=== PATIENT | male | born 1965 ===

== ENCOUNTER 2019-08-10 17:22 | Inpatient (IN) | payer MEDICARE, OTHER ==
[~2019-08-10] VITALS: Wt 120.2 kg
[2019-08-10] MEDS ORDERED: COLACE100 MG PO (18:42)
[2019-08-10] MEDS ORDERED: ELIQUIS5 M1 PO (18:43)
[2019-08-10] MEDS ORDERED: ARNUITY ELLIPT50 MCG INH (18:44)
[2019-08-10] MEDS ORDERED: LASIX20 MG PO (18:45)
[2019-08-10] MEDS ORDERED: LISINOPRIL5 MG PO (18:45)
[2019-08-10] MEDS ORDERED: SENNA8.6 MG PO (18:46)
[2019-08-10] MEDS ORDERED: MIRALAX17 GM PO (18:46)
[2019-08-10] MEDS ORDERED: METOPROLOL SUCC50 M2 PO (18:46)
[2019-08-10] MEDS ORDERED: FLOMAX0.4 MG PO (18:48)
[2019-08-10] MEDS ORDERED: LEVEMIR FL100 UNIT/1 SQ (18:49)
[2019-08-10] MEDS ORDERED: CYMBALTA30 MG PO (18:50)
[2019-08-10] MEDS ORDERED: DEPAKOTE500 MG PO (18:51)
[2019-08-10] MEDS ORDERED: DEPAKOTE250 MG PO (18:51)
[2019-08-10] MEDS ORDERED: MAPAP325 MG PO (18:53)
[2019-08-10] MEDS ORDERED: Ipratropium Brom3 ML INH ×2 (18:55→18:56)
[2019-08-10] MEDS ORDERED: MELATONIN5 M1 PO (18:56)
[2019-08-10] MEDS ORDERED: HUMALOG100 UNIT/1 SQ (18:57)
[2019-08-10] MEDS ORDERED: HUMALOG100 UNIT/2 SC (19:00)
--- NOTE | 2019-08-11 05:45 | NUR ---
FARHAT CARRERA a 53 year old M admitted via stretcher from [facility] as a emergency 72 hr. hold admission. PT RESIDES AT [facility] Arrived on unit at 0537. ALLERGIES: CHANTIX, LYRICA, NEURONTIN. Vital signs are: [id number] 146/86. PT REFUSED TO SIGN ALL ADMISSION FORMS AT THIS TIME. Authorization For The Release of Medical Information, Clothing List, Consent to Voluntary Admission and Hospitalization, Consent and Release Forms/Receipt of Rights, Acknowledgement of Advance Directive Information, Behavioral Health Consent Form, and Informed Consent of Medications. Admitted under the services of Dr. TAMMI MANCERA,[facility]. A search was conducted and hazardous articles were removed. Client was oriented to the unit. REFUSED SKIN ASSESSMENT AT THIS TIME. JOSEPH SIMMONS
--- NOTE | 2019-08-11 06:16 | NUR ---
DR ALLEN NOTIFIED OF MEDICAL CONSULT & MED REQ IS READY FOR REVIEW. CONSULT TO BE PLACED UNDER DR FOFANA.
--- NOTE | 2019-08-11 06:29 | NUR ---
AM BEDSIDE GLUCOSE WAS [id number]
[2019-08-11 06:33] VITALS: BP 146/86
[2019-08-11 07:44] VITALS: BP 146/86
--- NOTE | 2019-08-11 07:48 | NUR ---
NOTIFIED JULIAN HOANG OF PT ADMISSION. PER JULIAN SHE WILL BE IN TODAY.
[2019-08-11] MEDS ORDERED: CYMBALTA60 MG PO (07:56)
--- NOTE | 2019-08-11 10:00 | NUR ---
PATIENT STATING THAT HIS SISTER IS HIS POA, CALLED [facility] AT [phone] FOR PAPERWORK ON POA TO BE FAXED HERE.
--- NOTE | 2019-08-11 10:00 | NUR ---
PATIENT AGREED ALLOWED THIS NURSE AND MENTAL HEALTH WORKER TO ASSESS SKIN AND TAKE PICTURES OF ANY AREAS OF CONCERN. AREAS ASSESSED AND PICTURES TAKEN AT THIS TIME, SEE DOCUMENTATION FOR FURTHER DETAIL.
[2019-08-11 11:03] LABS: BASO % 0.5 % (0.0-1.0); EOS # 0.1 10*3/uL (0.0-0.4); EOS % 0.8 % (1.0-4.0); LYMPH # 1.8 10*3/uL (1.3-4.4); LYMPH % 23.1 % (27.0-41.0); MEAN CELL VOLUME 88.4 fl (80.0-94.0); MEAN CORPUSCULAR HGB 29.1 pg (27.0-31.0); MEAN CORPUSCULAR HGB CONC 32.9 g/dl (33.0-37.0); MEAN PLATELET VOLUME 9.7 fl (9.6-12.3); MONO # 0.8 10*3/uL (0.1-1.0); MONO % 10.6 % (3.0-9.0); NEUT % 64.1 % (47.0-73.0); PLATELET COUNT AUTOMATED 160 10*3/uL (130-400); RED BLOOD COUNT 5.09 10*6/uL (4.50-5.90); RED CELL DISTRI WIDTH 14.8 % (0-14.5); WHITE BLOOD COUNT 7.8 10*3/uL (4.8-10.8)
[2019-08-11 11:19] LABS: ALBUMIN 2.8 gm/dl (3.1-4.5); ALKALINE PHOSPHATASE 85 U/L (45-117); BUN 20 mg/dl (7-24); CHLORIDE 99 mmol/L (98-107); CREATININE 0.73 mg/dL (0.70-1.30); POTASSIUM 4.1 mmol/L (3.5-5.1); SGOT/AST 15 IU/L (3-35); SGPT/ALT 28 U/L (12-78); SODIUM 133 mmol/L (136-145); TOTAL PROTEIN 7.3 gm/dL (6.4-8.2)
[2019-08-11 12:37] LABS: VITAMIN D, 25-HYDROXY 21.8 ng/mL (30-100)
--- NOTE | 2019-08-11 12:53 | NUR ---
PSYCHOSOCIAL HX COMPLETED THIS DATE.
--- NOTE | 2019-08-11 13:08 | NUR ---
SPOKE WITH DR MYERS RE: PT NEEDING WOUND ORDERS FOR MULTIPLE AREAS. PER PIERCE MYERS GO AHEAD AND ORDER SKIN TEAR GUIDELINES. NO FURTHER ORDERS AT THIS TIME.
--- NOTE | 2019-08-11 14:27 | NUR ---
Shift chart check completed.
--- NOTE | 2019-08-11 14:59 | NUR ---
POA PAPER WORK FAXED OVER BY FACILITY, PUT IN PATIENTS CHART.
[2019-08-11 15:55] LABS: COLOR YELLOW (YELLOW)
[2019-08-11 15:56] LABS: BILIRUBIN NEGATIVE (NEGATIVE); BLOOD 3+ (NEGATIVE); CLARITY SL CLOUDY (CLEAR); GLUCOSE TRACE (NEGATIVE); KETONE NEGATIVE (NEGATIVE); LEUKO ESTERASE NEGATIVE (NEGATIVE); NITRITE NEGATIVE (NEGATIVE); SPECIFIC GRAVITY 1.015 (1.005-1.030); UROBILINOGEN 0.2 E.U./dl (0.2-1.0)
[2019-08-11 15:59] LABS: RBC 41-50 rbc/hpf (0-2); WBC 0-2 wbc/hpf (0-5)
[2019-08-11 16:00] LABS: BACTERIA 1+
--- NOTE | 2019-08-11 16:15 | NUR ---
P- ISOLATIVE; PREOCCUPIED WITH NURSING FACILITY I- ASSESS MOOD, ORIENTATION, SI/HI, HALLUCINATIONS, DELUSIONS OR PAIN. PROVIDE MEDS ON TIME WITH EDUCATION ON EACH. 1:1 THERAPEUTIC INTERACTION WITH EMOTIONAL SUPPORT AND VENTILATION OF FEELINGS. THERAPEUTIC LISTENING AND REASSURANCE PROVIDED. PROVIDE MEDICATIONS ON TIME WITH EDUCATION ON EACH. TWO ASSIST AND RAYMON FOR TRANSFERS; ENCOURAGE TO SHIFT WEIGHT AND ASSIST EVERY TWO HOURS. PRESSURE REDUCTION DEVICES IN PLACE. R- ALERT AND ORIENTED X3. MOOD IRRITABLE/DEPRESSED. DENIES SI/HI, HALLUCINATIONS, OR PAIN. NO S/S OF INTERACTING WITH INTERNAL STIMULI. MED COMPLIANT. EATING AND DRINKING ADEQUATELY. PATIENT PREOCCUPIED ABOUT NURSING FACILITY AND STATES THAT THEY TREAT HIM UNFAIRLY AND HE IS UPSET WITH HIS ROOMMATE. REASSURANCE, 1:1, AND LISTENING EFFECTIVE. PATIENT ISOLATIVE TO SELF, INTERACTIVE WITH STAFF. INCONTINENT OF BOWEL AND BLADDER/CONTINENT OF BLADDER AT TIMES. MAKES NEEDS KNOWN. P- ASSESS MOOD, ORIENTATION, SI/HI, HALLUCINATIONS, DELUSIONS, OR PAIN EVERY SHIFT. PROVIDE MEDS ON TIME WITH EDUCATION ON EACH. TWO ASSIST/RAYMON/ENCOURAGE AND ASSIST IN SHIFTING WEIGHT EVERY TWO HOURS. PRESSURE REDUCTION DEVICES INTACT. 1:1 THERAPEUTIC INTERACTION, REASSURANCE, LISTENING PROVIDED WHEN NECESSARY. FALLING STAR PROGRAM IN PLACE. Q15 MINUTE CHECKS MAINTAINED FOR SAFETY.
[2019-08-11 18:01] VITALS: BP 146/86
--- NOTE | 2019-08-11 18:32 | NUR ---
PATIENT STATES THAT PRN PO ATIVAN WAS EFFECTIVE AND HIS ANXIETY HAS DECREASED. PATIENT IS CURRENTLY LAYING IN HIS ROOM, EYES OPEN, RESPS EVEN AND UNLABORED, AND NO S/S OF DISTRESS NOTED. PATIENT HAS NO OTHER VOICED COMPLAINTS AT THIS TIME. ENCOURAGING TO CONTINUE TO UTILIZE COPING SKILLS.
[2019-08-11 20:00] VITALS: BP 100/60
--- NOTE | 2019-08-11 21:53 | NUR ---
P-DEPRESSED MOOD, IRRITABLE I-REDIRECTION WITH 1:1 THERAPEUTIC INTERVENTIONS. EDUCATE AND ENCOURAGE MEDICATION COMPLIANCE R-PATIENT COMPLIANT WITH HS MEDICATIONS. PATIENT PROVIDED NOURISHMENT AND FLUIDS AT HS. PATIENT WITH DEPRESSED MOOD. PATIENT STATING "I DID NOT LIKE IT AT THE FACILITY. THEY MADE FUN OF ME THERE". THERAPEUTIC COMMUNICATION PROVIDED AND EFFECTIVE AT THIS TIME. PATIENT IRRITABLE AT START OF SHIFT AND LESS IRRITABLE ONCE IN BED. PATIENT PROVIDED A URINAL AT BEDSIDE AND TOLERATING HEEL PROTECTORS. PATIENT TRANSFERRED IN BED VIA RAYMON WITH ASSIST X 2. P-CONTINUE TO ENCOURAGE MEDICATION COMPLIANCE, ENCOURAGE GROUP THERAPY WHILE AWAKE
--- NOTE | 2019-08-12 00:10 | NUR ---
Pulmicort treatment missed due to workload. Will resume in AN to keep patient on schedule.
--- NOTE | 2019-08-12 05:54 | NUR ---
PATIENT SLEPT 7 HOURS OF INTERRUPTED SLEEP THROUGHOUT SHIFT. Q 15 MINUTE CHECKS MAINTAINED. 24 HR chart check completed.
--- NOTE | 2019-08-12 07:40 | NUR ---
and team on unit to see pt at this time, update given. Latesha [facility]- saw pt this am, update given.
[2019-08-12 08:00] VITALS: BP 99/66
--- NOTE | 2019-08-12 08:10 | NUR ---
Patient eating in quiet room per pt request. Respirations easy and regular. Vital signs stable. No overt distress. DEJUAN KELLER
--- NOTE | 2019-08-12 08:52 | NUR ---
Recieved call from pt's sister Laura Welch, pt gave this RN verbal permission to speak with and update sister. Pt states "tell her anything she wants to know. I love that girl and she cares about me". Update given. Sister then requested to speak with pt, pt is talking with sister on phone at this time.
--- NOTE | 2019-08-12 12:35 | NUR ---
As this RN and second RN were providing linda-care to pt, pt grimaced in pain as care was provided. Upon assessment two areas of impaired skin noted to penis, surrounding skin is red. Area most proximal measures 0.3cm x 0.2cm x <0.1cm, red in color with yellow center. Distal area is larger and measures 0.5cm x 0.8cm x <0.1cm, this area is red in color with yellow center. No drainage or foul odor noted from these areas. Pt states "at the [facility] they tell me it's a yeast infection and sometimes they put cream on it a few times a week". Wound photographs taken after permission granted by pt for photographs to be taken. Dr. Jade notified and assessed pt. Nursing rose grading supervisor notified. Pt is A+Ox4 and is aware of area.
--- NOTE | 2019-08-12 12:40 | NUR ---
on unit, assessed pt, spoke with pt about skin lesions to penis. states he will enter orders.
--- NOTE | 2019-08-12 13:30 | NUR ---
Pt requested to lay down, pt assisted to bed at this time via neela lift by 2 RNs. Offered pt bed bath, pt declined, states "not right now, maybe tomorrow".
--- NOTE | 2019-08-12 16:25 | NUR ---
Pt rang call thomas, requested to get up out of bed. Assisted out of bed via neela by this RN and 2nd RN. Pt calm, pleasant and cooperative. Pt taken to quiet room per his request to look out the window. A few moments later pt comes to nurse's station requesting medication for "feeling really nervous". 1:1 with pt provided, pt states "I get this sometimes, I don't know why. I just feel nervous inside and I think I need that PRN medication to help me calm down". Encouraged pt to attempt to work through anxiety with nonpharmalogical measures first. Pt states he likes to do word search puzzles. Word search book provided. Pt calm and joking with staff when blood sugar checked, pt states "I'm just too sweet ya know". No outward signs of anxiety noted at this time. Pt currently working on word search. Will cont to monitor.
--- NOTE | 2019-08-12 17:21 | NUR ---
P- Depressed mood, isolates from peers, frequently voices displeasure regarding events that took place at [facility]term prior to hospital admission. I- Orientation, mood and behaviors assessed. Assessed pt for SI/HI, intent or plan. Assessed pt for s/s hallucinations, paranoia and/or delusions. Medications administered as per physician's orders. Assistance with ADL care provided as needed. Encouraged pt to participate in carrasco milieu. R- Pt is alert and oriented x4. Both ST and LT memory appear to be intact. Resps easy and even on room air. Pt reports depressed mood with periods of increased anxiety. Pt admits he has trouble controlling his anger at times. Affect is broad range. Speech is WNL and coherent, able to make needs known without difficulty. Pt denies SI/HI, intent or plan. Pt states "No, I've never wanted to kill myself. I might have wanted to kick someone's ass back in the day but I don't want to go to skilled nursing". Pt denies hallucinations, no response to internal stimuli noted. No paranoia or delusions noted. Med compliant without difficulty. Pt isolates from peers but talks easily and extensively with staff. Pt speaks frequently about issues he is having at the longterm prior to admission but pt states he is willing to go back there and give it one more try because his sister asked him to. This RN spent extensive time 1:1 with pt, allowed pt ample time to vent feelings and frustrations, provided pt with emotional support and encouraged pt to utilize coping skills to help manage anger. Pt enjoys reminiscing about his dogs. Pt declines to come out into dining room or be around peers. Pt prefers to sit in quiet room facing the window so he can look outside. Pt states "I'd rather sit here and look over at [place]". Pt compliant with hands on care, no aggressive or angry outbursts this shift. No distress noted. P- Plan to continue current treatment, continue to monitor mood and behaviors, provide appropriate reorientation, redirection and 1:1 as needed. Continue to encourage med compliance as well as group attendance and participation.
--- NOTE | 2019-08-12 17:34 | NUR ---
Call placed to respiratory requesting breathing tx per pt request. No distress noted.
[2019-08-12 20:00] VITALS: BP 102/58
--- NOTE | 2019-08-12 21:25 | NUR ---
P-DEPRESSED MOOD, IRRITABLE I-REDIRECTION WITH 1:1 THERAPEUTIC INTERVENTIONS. EDUCATE AND ENCOURAGE MEDICATION COMPLIANCE R-PATIENT COMPLIANT WITH HS MEDICATIONS. PATIENT PROVIDED NOURISHMENT AND FLUIDS AT HS. PATIENT WITH DEPRESSED MOOD. PATIENT STATING "SOMETIMES I FEEL LIKE I CAN CRAWL OUT OF MY OWN SKIN". THIS NURSE OBSERVED PATIENT PICKING AT SKIN. THIS NURSE PROVIDED 1:1 THERAPEUTIC COMMUNICATION AND PATIENT STATING DURING CARE "CAN I JUST STAY HERE FOREVER? DO I HAVE TO ACTING CRAZY SO I CAN STAY"? THIS NURSE PROVIDED MORE 1:1 THERAPEUTIC COMMUNICATION AND WITH EFFECTIVE RESULTS. PATIENT PROVIDED A URINAL AT BEDSIDE AND TOLERATING HEEL PROTECTOR. PATIENT TRANSFERRED IN BED VIA RAYMON WITH ASSIST X 2. P-CONTINUE TO ENCOURAGE MEDICATION COMPLIANCE, ENCOURAGE GROUP THERAPY WHILE AWAKE
--- NOTE | 2019-08-12 21:36 | NUR ---
DR VAZQUEZ NOTIFIED ABOUT PATIENT COMPLAINT OF SORE THROAT. NEW ORDER FOR CEPACOL TID PRN.
--- NOTE | 2019-08-12 22:38 | NUR ---
PATIENT RECEIVED CEPACOL WITH SOMEWHAT EFFECTIVE RESULTS AT THIS TIME
--- NOTE | 2019-08-13 05:19 | NUR ---
FARHAT CARRERA [id number] Please refer to the physician's history and physical for past medical history, comorbid conditions, and allergies. Diagnosis: INTERMITTENT EXPLOSIVE DISORDER Warren Score: 16,AT RISK WOUND DESCRIPTIONS: Wound Number: 1 Location of the wound: right top of foot Type of wound: scab Thickness: Partial Size: 0.2cm x 0.2cm x <0.1cm Tunneling: none Undermining: none Sinus Tract: none Presence of Exudate: none Amount: None Color: Brown, red Odor: None Periwound Skin Appearance: Normal Wound edges: approximated Pain (associated with wound): none at time of assessment How does patient state this happened? pt states he picks at [facility] Wound Number: 2 Location of the wound: right forearm distal Type of wound: scab Thickness: Partial Size: 0.5cm x 0.4cm x <0.1cm Tunneling: none Undermining: none Sinus Tract: none Presence of Exudate: none Amount: None Color: Brown, red Odor: None Periwound Skin Appearance: Normal Wound edges: approximated Pain (associated with wound): none at time of assessment How does patient state this happened? pt states he picks at [facility] Wound Number: 3 Location of the wound: right forearm proximal Type of wound: scab Thickness: Partial Size: 0.5cm x 0.5cm x <0.1cm Tunneling: none Undermining: none Sinus Tract: none Presence of Exudate: none Amount: None Color: Brown, red Odor: None Periwound Skin Appearance: Normal Wound edges: approximated Pain (associated with wound): none at time of assessment How does patient state this happened? pt states he picks at [facility] Wound Number: 4 Location of the wound: right forearm Type of wound: scab Thickness: Partial Size: 0.3cm x 0.2cm x <0.1cm Tunneling: none Undermining: none Sinus Tract: none Presence of Exudate: none Amount: None Color: Brown, red Odor: None Periwound Skin Appearance: Normal Wound edges: approximated Pain (associated with wound): none at time of assessment How does patient state this happened? pt states he picks at [facility] Wound Number: 5 Location of the wound: right forearm medial Type of wound: scab Thickness: Partial Size: 1.6cm x 0.4cm x <0.1cm Tunneling: none Undermining: none Sinus Tract: none Presence of Exudate: none Amount: None Color: Brown, red Odor: None Periwound Skin Appearance: Normal Wound edges: approximated Pain (associated with wound): none at time of assessment How does patient state this happened? pt states he picks at [facility] Wound Number: 6 Location of the wound: left upper arm Type of wound: scab Thickness: Partial Size: 0.7cm x 0.6cm x <0.1cm Tunneling: none Undermining: none Sinus Tract: none Presence of Exudate: none Amount: None Color: Brown, red Odor: None Periwound Skin Appearance: Normal Wound edges: approximated Pain (associated with wound): none at time of assessment How does patient state this happened? pt states he picks at [facility] Wound Number: 7 Location of the wound: proximal penis Thickness: Partial Size: 0.3cm x 0.5cm x 0.1cm Tunneling: none Undermining: none Sinus Tract: none Presence of Exudate: Serosanguineous Amount: Light Color: Red Odor: None Periwound Skin Appearance: Normal Wound edges: approximated Pain (associated with wound): none at time of assessment How does patient state this happened? pt states he was getting [facility] for a [facility] at the [facility] Wound Number: 8 Location of the wound: distal penis Thickness: Partial Size: 0.5cm x 0.6cm x 0.1cm Tunneling: none Undermining: none Sinus Tract: none Presence of Exudate: serosanguinous Amount: Light Color: Red Odor: None Periwound Skin Appearance: Normal Wound edges: approximated Pain (associated with wound): none at time of assessment How does patient state this happened? pt states he was getting [facility] for a [facility] Patient has intact scabbed areas noted to left ring finger as well and top of head. Patient states he picks at himself. Patient states he has neuropathy and that is what caused him to lose his big toe and below his knee of left lower extremity. Surface the patient is resting on: Proform SKIN PREVENTION RECOMMENDATION: 1. Pressure redistribution support surface as appropriate 2. Elevate heels 3. Remove boots/TEDS every shift and reapply 4. Head of bed 30 degrees as tolerated 5. Assess nutrition and hydration 6. Manage moisture 7. Avoid the use of containment devices while in bed 8. Use absorptive products on surfaces limit layers of linens on bed 9. Turn and reposition every 1-2 hours in bed and every 1 hour in chair as tolerated 10. Weight shifts every 15 minutes while up in chair 11. Offloading with pillows or device to keep heels elevated off bed 12. Monitor skin at least every shift 13. Inspect under medical devices twice a day WOUND TREATMENT RECOMMENDATIONS: Cleanse proximal penis and distal penis with soap water and apply nystatin cream bid and leave open to air. D/C skin tear guidelines Cleanse right top of foot, right forearm distal, right forearm proximal, right forearm lateral, right forearm medial,left upper arm, top of head, left ring finger with soap and water and apply aquaphor ointment BID. Heel raiser pro boot to right foot while in bed.
--- NOTE | 2019-08-13 05:30 | NUR ---
PATIENT SLEPT APPROXIMATELY 6 HOURS THROUGHOUT SHIFT. Q 15 MINUTE CHECKS MAINTAINED. 24 HR chart check completed.
[2019-08-13 07:32] VITALS: BP 121/79
--- NOTE | 2019-08-13 08:08 | NUR ---
PHYSICAL THERAPY Screen received pt is from [facility] admitted with intermittent explosive disorder. Please consult PT if pt has a decline in functional activity from baseline. Maliha Viramontes PT
--- NOTE | 2019-08-13 08:20 | NUR ---
Nursing screen received and chart reviewed. Patient admitted for [facility]. If patient has a decline in ADLs, please send OT orders. Thank you. Shruthi Lopes, OTR/L
--- NOTE | 2019-08-13 08:38 | NUR ---
AWILDA CALLED IN FOR UPDATE ON PT CONDITION, UPDATE PROVIDED.
--- NOTE | 2019-08-13 08:38 | NUR ---
Patient in quiet area per pt request. Respirations easy and regular. Vital signs stable. No overt distress. DEJUAN KELLER
--- NOTE | 2019-08-13 09:41 | NUR ---
Dr. Mercedes notified of wound care recommendations.
--- NOTE | 2019-08-13 12:15 | NUR ---
Spoke to Nereida at [facility]. Authorization form and clinical faxed to [phone]. Waiting for response.
--- NOTE | 2019-08-13 12:48 | NUR ---
DR FOFANA ON UNIT TO ASSESS PT, UPDATE PROVIDED.
--- NOTE | 2019-08-13 13:31 | NUR ---
PT REQUESTING A BREATHING TX AT THIS TIME, SPOKE WITH FRANKI CONTEH AND ADVISED OF PT REQUEST.
--- NOTE | 2019-08-13 15:40 | NUR ---
PM GROUP PT DID NOT ATTEND AFTERNOON GROUP THERAPY HE PREFERS TO BE ALONE IN THE QUIET ROOM. PT WORKS ON WORDSEARCH OR READS AND IS CONTENT TO DO SO.
--- NOTE | 2019-08-13 17:14 | NUR ---
P: PT ISOLATIVE TO GROUP ROOM, WILL INTERACT WITH STAFF BUT REFUSES TO INTERACT WITH PEERS. PT ANXIOUS AT TIMES AND OBSERVED TO BE PICKING AT SKIN. PT MOOD IS DEPRESSED. I: PROVIDE EMOTIONAL SUPPORT AND 1:1 FOR PT TO VOICE FEELINGS, ENCOURAGE GROUP PARTICIPATION AND SOCIALIZATION, ENCOURAGE PT TO PRACTICE DEEP BREATHING EXERCISES, OFFER DIVERSIONAL ACTIVITIES, ENCOURAGE PT TO STOP PICKING AT SKIN R: PT ALERT TO PERSON, PLACE, TIME AND SITUATION. PT MED COMPLIANT WITHOUT DIFFICULTY, MED EDUCATION PROVIDED. PT PLEASANT AND INTERACTIVE WITH STAFF AND PEERS. PT DENIES ANY SUICIDAL THOUGHTS. PT CONTINENT OF BOWEL AND BLADDER. PT REQUIRES A RAYMON LIFT FOR TRANSFERS INTO A GERICHAIR. PT WILL STOP PICKING AT SKIN AT TIMES WHEN DIRECTEDM BY STAFF. P: PROVIDE EMOTIONAL SUPPORT AND 1:1 FOR PT TO VOICE FEELINGS, ENCOURAGE PT TO STOP PICKING AT SKIN, APPLY AQUAPHOR ORDERED, ENCOURAGE GROUP PARTICIPATION AND SOCIALIZATION, CONTINUE TO PROVIDE DIVERSIONAL ACTIVITES, AND ENCOURAGE DEEP BREATHING EXERCISES
[2019-08-13 19:10] VITALS: BP 102/65
--- NOTE | 2019-08-13 23:11 | NUR ---
P-ISOLATIVE I-REDIRECTION WITH 1:1 THERAPEUTIC INTERVENTIONS. EDUCATE AND ENCOURAGE MEDICATION COMPLIANCE R-PATIENT COMPLIANT WITH HS MEDICATIONS. PATIENT PROVIDED NOURISHMENT AND FLUIDS AT HS. PATIENT ISOLATIVE IN DINING AREA AND MINIMAL INTERACTIONS WITH PEERS. PATIENT IN QUIET ROOM THROUGHOUT SHIFT. PATIENT STATING "I TALKED TO MY SISTER AND TO JOSE LUIS TODAY AND I WAS TOLD I COULD STAY HERE ALOT LONGER THAN I THOUGHT. PATIENT LESS PREOCCUPIED WITH NEGATIVE STATEMENTS ABOUT HIS LONG-TERM. PATIENT PROVIDED A URINAL AT BEDSIDE AND TOLERATING HEEL PROTECTOR. PATIENT TRANSFERRED IN BED VIA RAYMON WITH ASSIST X 2. P-CONTINUE TO ENCOURAGE MEDICATION COMPLIANCE, ENCOURAGE GROUP THERAPY WHILE AWAKE
--- NOTE | 2019-08-14 05:47 | NUR ---
PATIENT SLEPT 8 HOURS OF INTERRUPTED SLEEP THROUGHOUT SHIFT. Q 15 MINUTE CHECKS MAINTAINED. 24 HR chart check completed.
[2019-08-14 07:43] VITALS: BP 132/77
--- NOTE | 2019-08-14 07:48 | NUR ---
Patient resting quietly with no c/o discomfort. Respirations easy and regular. Vital signs stable. No overt distress. JULIAN HERNANDEZ
--- NOTE | 2019-08-14 09:09 | NUR ---
DR FOFANA AND TEAM ON UNIT TO ASSESS PT, UPDATE PROVIDED. PT C/O FEELING CONSTIPATED. ADVISED DR THAT PT HAS NOT HAD A BM IN 4 DAYS AND RECEIVED MILK OG MAG LAST HS. NO FURTHER ORDERS AT THIS TIME.
--- NOTE | 2019-08-14 09:16 | NUR ---
DR ALFONSO UPDATED ON PT UA C& RESULTS. ADVISED THAT PT IS ASYMPTOMATIC. NO FURTHER ORDERS AT THIS TIME.
--- NOTE | 2019-08-14 09:22 | NUR ---
SPOKE WITH DR CADENA AT THE REQUEST OF MEDICAL DUE TO PT C/O NERVE PAIN. PER DR CADENA PT IS ON THE MAX DOSE OF CYMBALTA AT THIS TIME AND IT SHOULD HELP WITH PT PAIN. UPDATED DR VAZQUEZ, PER GO AHEAD AND GIVE PT SOME TYLENOL ALSO. NO FURTHER ORDERS AT THIS TIME.
--- NOTE | 2019-08-14 10:36 | NUR ---
Met with pt this AM individually. Pt was pleasant as he spoke about his love of [place]. Pt reminisced about staying at his grandparents home in [facility] during the summer months when he was young. 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 Pt spoke about his previous marriage and the difficulty he had with his ex-. Pt did not exhibit any inappropriate behaviors during interaction with this copy writer. No delusions or hallucinations were voiced by pt. Pt admitted to feeling depressed at times and having difficulty with living in the . Conversation was interrupted by pt's breakfast being delivered to him.
--- NOTE | 2019-08-14 11:49 | NUR ---
AM GROUP PT CHOSES TO STAY IN A QUIET ROOM AND ALAN WORDSEARCHS OR READS THE NEWSPAPER. PT IS PLEASANT AND POLITE. PT IS CONTENT AND EXHIBITS NO ADVERSE BEHAVIORS.
--- NOTE | 2019-08-14 13:02 | NUR ---
IP [address] [facility]. NRD 08/17. Ref # [id number]
--- NOTE | 2019-08-14 15:37 | NUR ---
PM GROUP PT DID NOT ATTEND AFTERNOON GROUP THERAPY. PT WAS IN BED RESTING.
--- NOTE | 2019-08-14 15:45 | NUR ---
Shift chart check completed.
--- NOTE | 2019-08-14 16:34 | NUR ---
PT REQUESTING A BREATHING TREATMENT, SPOKE WITH RT AND ADVISED OF PT REQUEST, NO FURTHER ORDERS AT THIS TIME.
--- NOTE | 2019-08-14 18:02 | NUR ---
P: DEPRESSED MOOD, REPORTED 5/10 OF DEPRESSION SCORE. I: ONE ON ONE FOR EMOTIONAL SUPPORT, INTERACTIVE WITH STAFF. R: EFFECTIVE. PATIENT IS ALERT TO PERSON, PLACE, TIME AND SITUATION. MOOD IS STABLE. IN GOOD HUMOR. DENIES ANY HALLUCINATIONS, DELUSIONS, HI/SI. MEDICATIONED WITH TYLENOL FOR PAIN MANAGEMENT. 2 PERSON ASSIST WITH ACTIVITIES OF DAILY LIVING, CONTINENT OF BOWEL AND BLADDER. SET UP FOR MEALS, INTAKES ARE GOOD WITH ADEQUATE FLUIDS. MEDICAITON COMPLAINT WITH EDUCATION PROVIDED. Q 15 MINUTE SAFETY CHECKS MAINTAINED. P: CONTINUE TO MONITOR MOOD AND AGGRESSION. PROVIDE ONE ON ONE AND REDIRECTION NEEDED.
--- NOTE | 2019-08-14 18:29 | NUR ---
SPOKE WITH DR OROZCO AND ADVISED THAT PT MAG CITRATE WAS EFFECTIVE, NO FURTHER ORDERS AT THIS TIME.
[2019-08-14 19:02] VITALS: BP 111/69
--- NOTE | 2019-08-14 19:45 | NUR ---
24 HR chart check completed.
--- NOTE | 2019-08-14 21:30 | NUR ---
PT RECEIVED BREATHING TREATMENT AT THIS TIME.
--- NOTE | 2019-08-14 23:06 | NUR ---
P-ISOLATIVE I-1:1 FOR EMOTIONAL SUPPORT, ADMINISTER MEDICATIONS, MONITOR SLEEP R-ALERT & ORIENTED X 4. PLEASANT & JOVIAL INTERACTIONS WITH STAFF. STABLE MOOD. STATED THAT HE IS FEELING BETTER & HE WOULD LIKE TO STAY HERE LONGER BECAUSE HE LIKES IT HERE & EVERYONE IS NICE. HAS REMAINED ISOLATIVE TO HIS ROOM & HAD 2 MORE LOOSE BMS ON BED PROCTOR. DENIES SUICIDAL FEELINGS. NO DELUSIONS VOICED. DENIES SENSORY DISTURBANCE & NONE IS EVIDENT. CONTINENT OF BLADDER & USES BEDSIDE URINAL. ATE SNACK. BEDSIDE GLUCOSE 276. COMPLIANT WITH DIETARY RESTRICTIONS & MEDICATIONS. NO AGITATION OR AGGRESSION. TALKS ABOUT HOW MUCH HE LOVES & APPRECIATES HIS SISTER. P-CONTINUE TO MONITOR & PROVIDE PHYSICAL ASSISTANCE & EMOTIONAL SUPPORT
--- NOTE | 2019-08-15 05:27 | NUR ---
PT HAS SLEPT INTERMITTENTLY THROUGHOUT THE SHIFT SLEEPING APPX 5 1/2- 6 HOURS. PRESENTLY RECEIVING BREATHING TREATMENT.
--- NOTE | 2019-08-15 06:45 | NUR ---
AM BEDSIDE GLUCOSE [id number]
--- NOTE | 2019-08-15 07:50 | NUR ---
DR. FOFANA ON UNIT TO ASSESS PATIENT.
[2019-08-15 08:00] VITALS: BP 125/81
--- NOTE | 2019-08-15 08:15 | NUR ---
Treatment Plan meeting was held with Dr. Boss, SANTY Murphy, RN, AT, HAND TAPPER-S and Steam Distribution Supervisor. Plan for discharge . Pt. will return to [facility].
--- NOTE | 2019-08-15 08:16 | NUR ---
Patient resting quietly with no c/o discomfort. Respirations easy and regular. Vital signs stable. No overt distress. JULIAN HERNANDEZ
--- NOTE | 2019-08-15 10:17 | NUR ---
Spoke with Mira in admissions at [place] and inquired about availabilty of a private room for patient. Mira stated that she is unsure if they are accepting admissions from other s at this time due to COVID 19. She requested that a referral be faxed and she will then speak to the content administrator. Faxed referral to her attn. Await return call.
--- NOTE | 2019-08-15 10:32 | NUR ---
PATIENT COMPLAINING OF SORE THROAT/COUGH. PRN LOZENGER GIVEN PO AT THIS TIME.
--- NOTE | 2019-08-15 11:20 | NUR ---
Per Mira Palafox, pt is denied admission there.
--- NOTE | 2019-08-15 11:33 | NUR ---
AM GROUP PT CHOOSES NOT TO ATTEND GROUP THERAPY. PT REMAINS IN A QUIET ROOM AND READS THE NEWSPAPER OR DOES WORDSEARCH PUZZLES.
--- NOTE | 2019-08-15 13:01 | NUR ---
Call placed to respiratory for breathing tx per pt request. No distress noted.
--- NOTE | 2019-08-15 13:54 | NUR ---
Spoke with Jolanta at [facility] concerning discharge plans for possible discharge . Clinical Updates faxed to Facility.
--- NOTE | 2019-08-15 14:27 | NUR ---
P- Isolative, preoccupied with talking about roommate and not going back to [facility] yet. Pt states "I want to stay as long as needed to make sure I'm well before I go back". I- Orientation, mood and behaviors assessed. Assessed pt for SI/HI, intent or plan. Assessed pt for s/s hallucinations, paranoia and/or delusions. Medications administered as per physician's orders. Assistance with ADL care provided as needed, neela lift for transfers. Encouraged pt to attend and participate in carrasco milieu groups and activities. R- Pt is A+Ox4. Memory appears to be intact. Resps easy and even on room air. Mood stable, euthymic, affect broad range. Speech is WNL and coherent, able to make needs known without difficulty. Pt denies SI/HI, intent or plan. Pt denies hallucinations, no response to internal stimuli noted. No paranoia or delusions noted. Med compliant without difficulty. Pt continues to be preoccupied with his dislike for his roommate at the [facility] and states "I want to stay here as long as needed to make sure I'm well before I go back". Pt states he is planning to go back to [facility], pt states "the lease administrator just loves me. She wants me back". No aggressive behaviors displayed this shift. Pt compliant with HOC, complete bed bath/shave completed this shift. Pt continues to isolate to quiet room, declines to attend groups. Will engage readily in conversation with staff but minimal peer interactions noted. P- Plan to continue current tx, continue to monitor mood and behaviors, provide appropriate reorientation, redirection and 1:1 as needed. Continue to encourage medication compliance as well as group attendance and participation.
--- NOTE | 2019-08-15 15:28 | NUR ---
PM GROUP PT DID NOT ATTEND AFTERNOON GROUP THERAPY. PT ISOLATES TO THE QUIET ROOM
--- NOTE | 2019-08-15 17:55 | NUR ---
NO FURTHER COMPLAINTS OF SORE THROAT. PRN CEPACOL EFFECTIVE.
[2019-08-15 19:02] VITALS: BP 110/58
--- NOTE | 2019-08-15 21:32 | NUR ---
Patient alert and oriented to person,place,time and situation. Mood is calm but isolative to self. No SI/HI noted. Denies any hallucinations at this time. No signs of any responding to internal stimuli noted. Patient pleasant and cooperative with staff. Patient compliant with HS medications without any difficulty. Provided 1:1 for emotional support. Redirected when needed. Plan to continue to encourage medication compliance. Also continue to provide emotional support and redirect when needed/appropriate. Will continue to monitor moods/behaviors. Q 15 minute safety checks continued and maintained. See [facility] flowsheet for further documentation.
--- NOTE | 2019-08-16 00:19 | NUR ---
24 HR chart check completed.
--- NOTE | 2019-08-16 05:31 | NUR ---
Patient slept approx. 7 hours with a few awakenings throughout shift. Q 15 minute safety checks continued and maintained.
--- NOTE | 2019-08-16 07:30 | NUR ---
Patient resting quietly with no c/o discomfort. Respirations easy and regular. Vital signs stable. No overt distress. ARLENE DEAN
[2019-08-16 07:52] VITALS: BP 126/78
--- NOTE | 2019-08-16 08:10 | NUR ---
and on unit to see pt at this time. Made aware pt presenting with frequent dry cough. While physician on unit to assess pt, pt began c/o "chest hurting" and "thumping" when he was in neela this AM getting out of bed. assessed. New orders recieved for labs, cxray and EKG. VSS. No acute distress noted.
--- NOTE | 2019-08-16 08:15 | NUR ---
Treatment Plan meeting was held with Dr. Boss, RN, AT, [facility] and Hired Hand. Plan for discharge Tuesday with return to [facility]. Call placed to facility and informed them of change to discharge Plan.
[2019-08-16 08:28] LABS: BASO % 0.3 % (0.0-1.0); EOS # 0.1 10*3/uL (0.0-0.4); EOS % 0.9 % (1.0-4.0); HEMATOCRIT 39.5 % (42.0-52.0); LYMPH # 1.8 10*3/uL (1.3-4.4); LYMPH % 19.5 % (27.0-41.0); MEAN CELL VOLUME 89.4 fl (80.0-94.0); MEAN CORPUSCULAR HGB 29.2 pg (27.0-31.0); MEAN CORPUSCULAR HGB CONC 32.7 g/dl (33.0-37.0); MEAN PLATELET VOLUME 9.4 fl (9.6-12.3); MONO # 0.8 10*3/uL (0.1-1.0); NEUT # 6.2 10*3/uL (2.3-7.9); NEUT % 69.4 % (47.0-73.0); PLATELET COUNT AUTOMATED 172 10*3/uL (130-400); RED BLOOD COUNT 4.42 10*6/uL (4.50-5.90); RED CELL DISTRI WIDTH 14.6 % (0-14.5)
[2019-08-16 08:51] LABS: ALBUMIN 2.6 gm/dl (3.1-4.5); ALKALINE PHOSPHATASE 75 U/L (45-117); BUN 22 mg/dl (7-24); CHLORIDE 94 mmol/L (98-107); POTASSIUM 4.9 mmol/L (3.5-5.1); SGOT/AST 7 IU/L (3-35); SGPT/ALT 20 U/L (12-78); SODIUM 130 mmol/L (136-145); TOTAL PROTEIN 6.8 gm/dL (6.4-8.2)
--- NOTE | 2019-08-16 09:30 | NUR ---
notified all testing completed and results in computer for review. Pt with no further c/o at this time.
--- NOTE | 2019-08-16 11:29 | NUR ---
AM GROUP PT CHOSES NOT TO ATTEND GROUP THERAPY. PT STAYS IN A QUIET ROOM AND READS THE NEWSPAPER OR DOES WORDSEARCH PUZZLES.
--- NOTE | 2019-08-16 13:26 | NUR ---
P- Pt reports depressed mood, remains isolative, can be demanding of staff at times, states he is still angry at his roommate from the care home, pt states "if I saw that sujatha right now I'd knock him so hard the cars would whiz by". I- Orientation, mood and behaviors assessed. Assessed pt for SI/HI, intent or plan. Assessed pt for s/s hallucinations, paranoia and/or delusions. Medications administered as per physician's orders. Assistance with ADL care provided as needed. Encouraged pt to attend and participate in carrasco milieu groups and activities. R- Pt is alert and oriented x4. Memory appears to be intact. Resps easy and even on room air. Pt reports mood as depressed with periods of anxiety, affect is broad range. Speech is WNL and coherent, able to make needs known without difficulty. Pt denies hallucinations, no response to internal stimuli noted. No paranoia or delusions noted. Pt denies SI/HI, intent or plan. However, in reference to pt's roommate from the care home pt states "if I saw him right now I'd knock him so hard the cars would whiz right by". Pt remains isolative, refuses to attend groups or activities or to sit in common areas with other patients. Pt readily engages in conversation with staff but has very minimal interactions with peers. Pt is medication compliant without difficulty. Pt becomes demanding at times when his requests are not immediately met by staff. No aggressive behaviors displayed. P- Plan to continue current tx, continue to monitor mood and behaviors, provide appropriate reorientation, redirection and 1:1 as needed. Continue to encourage medication compliance as well as group attendance and participation.
--- NOTE | 2019-08-16 13:35 | NUR ---
Met with pt individually this AM. Pt provided further personal history. Discussed the events which caused pt's [facility] admission. Discussed the difficulty in adjusting to sharing a room with a roommate. Pt stated that he cannot tolerate uncleanliness and that is exactly what his roommate is. Discussed what pt is able to control that would make his experience better when pt returns to NF. Spoke to pt about the possibility of moving in the future to a different [facility] that has private rooms. Offered to pt that pt needs to have documented good behaviors that can be reviewed for future NF referrals Further explained that if pt continues with difficult behaviors, this most likely will hurt pt's acceptance to a different NF. Pt voiced understanding but then stated, "I'm not keeping quiet about that sujatha. He said that he would kick my ass." Empathize with pt but again stated to pt that good behavior will help him more than bad behavior. Reviewed with pt the positives of his current NF. Pt spoke of the time that he lived at [facility] with his little dog Myranda. Pt then shared further about Myranda. Pt became tearful during this time and shared that he continues to mourn for Myranda even though she has been for 3 years. Discussed this further and spoke about grief and healing from grief. Discussed this adjusto writer operator speaking to pt's sister Laura Marie about pt's discharge needs and future change to NF for pt. Pt is agreeable to this.
--- NOTE | 2019-08-16 14:40 | NUR ---
PT INSTRUCTED ON FLUTTER. PT TOLERATED WELL AND CAN DO ON HIS OWN.
--- NOTE | 2019-08-16 15:36 | NUR ---
PM GROUP PT DID NOT ATTEND AFTERNOON GROUP THERAPY. PT WAS IN BED RESTING.
--- NOTE | 2019-08-16 16:00 | NUR ---
Pt requested to call sister Laura. Pt sitting in same room with this RN while speaking on phone with sister. Pt heard stating to sister "Yeah, they asked me if I still want to hurt that sujatha and I said yeah, I do". Pt then states "No, I'm not just saying that to stay here longer. I mean it, you know me. If I saw him right now I'd knock his ass out of that wheelchair so fast". Pt states "they're really good to me here. I have a little anger but not a ton of anger anymore. I do know I have some problems but if anyone in this rotten family should've wound up in a psych unit it shouldn't have been me".
--- NOTE | 2019-08-16 16:19 | NUR ---
PRN Cepacol lozenge given at this time per pt request for c/o cough/sore throat. Will monitor for effectiveness.
[2019-08-16 19:00] VITALS: BP 114/73
--- NOTE | 2019-08-16 21:55 | NUR ---
Patient alert and oriented to person,place,time and situation. Mood is calm but isolative to self. Patient can be demanding at times. No SI/HI noted. Denies any hallucinations at this time. No signs of any responding to internal stimuli noted. Patient pleasant and cooperative with staff. Patient compliant with HS medications without any difficulty. Provided 1:1 for emotional support. Redirected when needed. Plan to continue to encourage medication compliance. Also continue to provide emotional support and redirect when needed/appropriate. Will continue to monitor moods/behaviors. Q 15 minute safety checks continued and maintained. See [facility] flowsheet for further documentation.
--- NOTE | 2019-08-17 05:25 | NUR ---
Patient slept approx. 6 hours throughout shift with a few awakenings. Q 15 minute safety checks continued and maintained.
[2019-08-17 08:00] VITALS: BP 106/62
--- NOTE | 2019-08-17 09:03 | NUR ---
Family meeting held via phone with pt's sister Laura Marie. Discussed pt's history and current status. Indepth discussion about discharge plan. Laura stated that she believes that pt is receiving excellent care at [facility]. Laura shared that she believes pt needs a friend/confidant but that pt has a difficult time trusting people. Discussed the possibility of pt receiving counseling at when he returns. Laura stated that she plans on speaking with the geriatric social worker to see if there might be another resident that could be introduced to pt with the possibility of building a friendship.
--- NOTE | 2019-08-17 09:11 | NUR ---
Treatment Plan meeting was held with Dr. Boss, CLINICIAN ONCOLOGY Katherine, RN, AT, INDUSTRIAL AUTOMATION SPECIALIST-S and Gunite Nozzle Operator. Plan for discharge Tuesday/Tuesday. Pt. will return to [facility]. Spoke with facility yesterday and informed of discharge plan for next week. Clinical Updates faxed to facility Attn: Jolanta in Admissions [phone].
--- NOTE | 2019-08-17 11:32 | NUR ---
AM GROUP PT CHOOSES NOT TO ATTEND GROUP THERAPY. PT STAYS IN A QUIET ROOM BY HIMSELF.
--- NOTE | 2019-08-17 15:07 | NUR ---
PT YELLING IN HIS SLEEP "GET OUT OF HERE, CRAZY OLD BASTARD LADY. LEAVE ME ALONE" WILL CONTINUE TO MONITOR.
[2019-08-17 19:11] VITALS: BP 116/62
--- NOTE | 2019-08-18 00:12 | NUR ---
P-ISOLATIVE, PREOCCUPIED I-REDIRECTION WITH 1:1 THERAPEUTIC INTERVENTIONS. EDUCATE AND ENCOURAGE MEDICATION COMPLIANCE R-PATIENT COMPLIANT WITH HS MEDICATIONS. PATIENT PROVIDED NOURISHMENT AND FLUIDS AT HS. PATIENT ISOLATIVE IN QUIET AND MINIMAL INTERACTIONS WITH PEERS. PATIENT INTERACTING WITH NURSING STAFF. PATIENT STATING "WELL, MY SISTER IS UPSET WITH ME. I TOLD HER I WAS GOING TO SEE ABOUT GOING TO ANOTHER FACILITY. I TOLD MY SISTER I WAS A GROWN MAN. MY SISTER IS NOT HAPPY AND SHE SAID SHE WON'T HELP ME MOVE". PATIENT PREOCCUPIED WITH SNF WHERE HE RESIDES AND STATING NUMEROUS NEGATIVE STATEMENTS ABOUT THE SNF. PATIENT DENIES SUICIDAL OR HOMICIDAL IDEATIONS. PATIENT WITH NO HALLUCINATIONS OR DELUSIONS. PATIENT PROVIDED A URINAL AT BEDSIDE AND TOLERATING HEEL PROTECTOR. PATIENT TRANSFERRED IN BED VIA RAYMON WITH ASSIST X 2. P-CONTINUE TO ENCOURAGE MEDICATION COMPLIANCE, ENCOURAGE GROUP THERAPY WHILE AWAKE
--- NOTE | 2019-08-18 05:44 | NUR ---
PATIENT OBSERVED ON Q 15 MIN CHECKS TO HAVE SLEPT APPROX 6 HOURS INTERRUPTED. NO SIGNS OR SYMPTOMS OF DISTRESS NOTED.
--- NOTE | 2019-08-18 07:30 | NUR ---
DR. FOFANA ON UNIT TO ASSESS PATIENT.
[2019-08-18 08:00] VITALS: BP 125/72
--- NOTE | 2019-08-18 15:07 | NUR ---
Shift chart check completed.
--- NOTE | 2019-08-18 18:03 | NUR ---
A&O X4. STABLE MOOD. CALM AND INTERACTIVE. PT SEEKS OUT 1:1 ATTENTION. CAN BE DEMANDING AT TIMES AND WANTS TASKS COMPLETED IMMEDIATELY. PT MADE A COMMENT TO ANOTHER PT THAT THE STAFF WAS HERE TO BE HIS SERVANTS ONLY. PT WAS PROMPTLY REDIRECTED AND EXPLAINED TO PT WE ARE NOT SE[facility]ANTS HOWEVER WE ARE HERE TO ASSIST THE PT AND ENCOURAGE THE PT TO DO FOR THEMSELVES WHAT THEY CAN DO. PT CAN BE DISRUPTIVE WHEN STAFF IS CARING FOR OTHER PTS AND DEMANDS HELP AT THAT TIME. PT STARTED REFERRING TO HIS NURSING FACILITY [facility]." NO HALLUCINATIONS NOTED. GRANDIOSE DELUSIONS NOTED. MEDICATION COMPLIANT WITHOUT DIFFICULTY. MONITORED BEHAVIORS WITH Q15 MINUTE SAFETY CHECKS.
[2019-08-18 20:00] VITALS: BP 118/56
--- NOTE | 2019-08-18 23:38 | NUR ---
P-ISOLATIVE, PREOCCUPIED I-REDIRECTION WITH 1:1 THERAPEUTIC INTERVENTIONS. EDUCATE AND ENCOURAGE MEDICATION COMPLIANCE R-PATIENT COMPLIANT WITH HS MEDICATIONS. PATIENT PROVIDED NOURISHMENT AND FLUIDS AT HS. PATIENT ISOLATIVE IN QUIET AND MINIMAL INTERACTIONS WITH PEERS. PATIENT INTERACTING WITH NURSING STAFF. PATIENT PREOCCUPIED WITH [facility]LTER WHERE HE RESIDES AND STATING NUMEROUS NEGATIVE STATEMENTS ABOUT THE SHELTER. PATIENT DENIES SUICIDAL OR HOMICIDAL IDEATIONS. PATIENT WITH NO HALLUCINATIONS OR DELUSIONS. PATIENT PROVIDED A URINAL AT BEDSIDE AND TOLERATING HEEL PROTECTOR. PATIENT TRANSFERRED IN BED VIA RAYMON WITH ASSIST X 2. P-CONTINUE TO ENCOURAGE MEDICATION COMPLIANCE, ENCOURAGE GROUP THERAPY WHILE AWAKE
--- NOTE | 2019-08-19 05:43 | NUR ---
PATIENT SLEPT 3 HOURS OF INTERRUPTED SLEEP THROUGHOUT SHIFT. Q 15 MINUTE CHECKS MAINTAINED. 24 HR chart check completed.
[2019-08-19 07:17] VITALS: BP 111/70
--- NOTE | 2019-08-19 11:24 | NUR ---
P-ISOLATIVE, PREOCCUPIED I-REDIRECTION WITH 1:1 THERAPEUTIC INTERVENTIONS. EDUCATE AND ENCOURAGE MEDICATION COMPLIANCE R-PATIENT COMPLIANT WITH MEDICATIONS. PATIENT ISOLATIVE IN QUIET AND MINIMAL INTERACTIONS WITH PEERS. PATIENT INTERACTING WITH NURSING STAFF. PATIENT VERBALIZING TO OTHER PEERS "I LIKE TO BE ALONE". PATIENT PREOCCUPIED WITH [facility] WHERE HE RESIDES AND STATING NUMEROUS NEGATIVE STATEMENTS ABOUT THE [facility]. PATIENT DENIES SUICIDAL OR HOMICIDAL IDEATIONS. PATIENT WITH NO HALLUCINATIONS OR DELUSIONS. PATIENT ATTEMPTING TO TALK ABOUT NURSING STAFF MEMBERS WHEN NOT PRESENT. PATIENT INCONTINENT AT TIMES DURING SHIFT. P-CONTINUE TO ENCOURAGE MEDICATION COMPLIANCE, ENCOURAGE GROUP THERAPY WHILE AWAKE
--- NOTE | 2019-08-19 12:44 | NUR ---
PT STATED TO STAFF "I WANT TO GO TO BED". PT ASSISTED TO BED WITH RAYMON LIFT X2 STAFF ASSIST. INCONTINENCE CARE PROVIDED. PT IRRITABLE STAFF AT THIS TIME, THREW EYE GLASSES ON TABLE NEXT TO BED. PT STATES "I'LL PROBABLY JUST STAY IN BED FOR THE REST OF THE DAY. I WON'T EVEN GET UP FOR DINNER". PT REFUSED TO ELABORATE. THIS RN ATTEMPTED TO APPLY HEEL PROTECTOR BOOT, PT STATES "NO. I DON'T WANT THAT ON. I'M IN BED". ATTEMPTED TO PROVIDE EDUCATION RE: IMPORTANCE OF PROTECTING HEEL FROM BED, PT STATES "THAT'S THE LEAST OF MY PROBLEMS" PT THEN CLOSED EYES AND REFUSED TO ENGAGE WITH RN ANY FURTHER. PT ABLE TO UTILIZE CALL SANTIAGO FOR ASSISTANCE, BED ALARM ACTIVATED. Q15 MIN MONITORING CONTINUES PER POLICY.
--- NOTE | 2019-08-19 15:41 | NUR ---
PT ASKED TO GET OUT OF BED, PT ASSISTED OUT OF BED TO RECLINED GERICHAIR PER PT PREFERENCE WITH RAYMON LIFT X2 STAFF ASSIST. PT REQUESTED SOMETHING FOR UPSET STOMACH AND HEADACHE. OFFERED PT PRN MAALOX AND TYLENOL. PT REQUESTS TUMS AND TYLENOL RATHER THAN MAALOX. CALL PLACED TO RE: ABOVE. REVIEWED PT'S CALCIUM LEVEL OF 8.2 FROM 08/15. GAVE TELEPHONE ORDER FOR TUMS 500MG TID PRN INDIGESTION. READ BACK AND VERIFIED. DR REQUESTED THIS RN ENTER ORDERS. WITNESSED BY 2ND RN NICKY
--- NOTE | 2019-08-19 15:58 | NUR ---
PRN Tylenol 325mg one tab PO given at this time per pt request for c/o headache not rated on pain scale. Will give TUMS once approved and delievered from pharmacy. Pt in no distress, talking on phone with sister at this time. WIll monitor for effect.
--- NOTE | 2019-08-19 17:35 | NUR ---
Tums chewable one tab PO given at this time per pt request for c/o indigestion. Will monitor for effect. Pt voices no further c/o headache at this time, Tylenol given earlier effective.
--- NOTE | 2019-08-19 17:56 | NUR ---
CLEMENTE WAS TAKING PT VITAL SIGNS AND PT STATED TO MILIEU HE ALAN NOT LIKE THE MIDNIGHT MILIEU OR DAYTIME NURSE FROM YESTERDAY. PT STATED HE DOESNT HAVE A REASON HE JUST DOESNT LIKE THEM. PT WAS REDIRECTED AT THIS TIME.
--- NOTE | 2019-08-19 18:03 | NUR ---
Cepacol lozenge given at this time per pt request
[2019-08-19 20:01] VITALS: BP 117/68
--- NOTE | 2019-08-19 23:20 | NUR ---
P-DEMANDING I-PROVIDE 1:1 WITH THERAPEUTIC INTERVENTIONS. ENCOURAGE MEDICATION COMPLIANCE AND EDUCATE. MONITOR SLEEP. R-PATIENT ALERT AND ORIENTED X4. PT CALM, COOPERATIVE, AND INTERACTIVE. PT MEDICATION COMPLIANT WITHOUT DIFFICULTY AFTER REVIEW. PT DENIES SI/HI, HALLUCINATIONS, OR PAIN. PT CONTINUES TO BE INTERMITTENTLY DEMANDING DESPITE ALL NEEDS BEING MET, EASILY REDIRECTABLE AT THIS TIME. PT X2 STAFF WITH CARE DUE TO PAST ACCUSATORY BEHAVIORS AND ASSISTANCE WITH RAYMON. COMPLIANT WITH CARE WITHOUT DIFFICULTY, CONTINENT/INCONTINENT OF BOWEL AND BLADDER. PT CURRENTLY LAYING DOWN WITH EYES CLOSED, RESPIRATIONS EASY AND REGULAR, NO SIGNS OR SYMPTOMS OF DISTRESS NOTED. P-CONTINUE TO MONITOR MOOD AND BEHAVIORS. MAINTAIN Q 15 MIN CHECKS AND PRN FOR SAFETY.
--- NOTE | 2019-08-20 04:12 | NUR ---
Cepacol lozenge given at this time per pt request.
--- NOTE | 2019-08-20 05:28 | NUR ---
FARHAT CARRERA [id number] Please refer to the physician's history and physical for past medical history, comorbid conditions, and allergies. Diagnosis: INTERMITTENT EXPLOSIVE DISORDER Warren Score: 16,AT RISK WOUND DESCRIPTIONS: Wound Number: 1 Location of the wound: right top of foot Type of wound: scab Thickness: Partial Size: 0.2cm x 0.2cm x <0.1cm Tunneling: none Undermining: none Sinus Tract: none Presence of Exudate: none Amount: None Color: Brown, red Odor: None Periwound Skin Appearance: Normal Wound edges: approximated Pain (associated with wound): none at time of assessment How does patient state this happened? pt states he picks at [facility] Wound Number: 2 Location of the wound: right forearm distal Type of wound: scab Thickness: Partial Size: 0.3cm x 0.2cm x <0.1cm Tunneling: none Undermining: none Sinus Tract: none Presence of Exudate: none Amount: None Color: Brown, red Odor: None Periwound Skin Appearance: Normal Wound edges: approximated Pain (associated with wound): none at time of assessment How does patient state this happened? pt states he picks at [facility] Wound Number: 3 Location of the wound: right forearm proximal Type of wound: scab Thickness: Partial Size: 0.3cm x 0.2cm x <0.1cm Tunneling: none Undermining: none Sinus Tract: none Presence of Exudate: none Amount: None Color: Brown, red Odor: None Periwound Skin Appearance: Normal Wound edges: approximated Pain (associated with wound): none at time of assessment How does patient state this happened? pt states he picks at [facility] Wound Number: 4 Location of the wound: right forearm Type of wound: scab Thickness: Partial Size: 0.2cm x 0.2cm x <0.1cm Tunneling: none Undermining: none Sinus Tract: none Presence of Exudate: none Amount: None Color: Brown, red Odor: None Periwound Skin Appearance: Normal Wound edges: approximated Pain (associated with wound): none at time of assessment How does patient state this happened? pt states he picks at [facility] Wound Number: 5 Right forearm medial area pink and blanchable in color. No open areas noted at time of assessment. No drainage at time of assessment. Wound Number: 6 Location of the wound: left upper arm Type of wound: scab Thickness: Partial Size: 0.5cm x 0.6cm x <0.1cm Tunneling: none Undermining: none Sinus Tract: none Presence of Exudate: none Amount: None Color: Brown, red Odor: None Periwound Skin Appearance: Normal Wound edges: approximated Pain (associated with wound): none at time of assessment How does patient state this happened? pt states he picks at himeself Wound Number:7 Proximal penis area is pink in color. No open areas noted at time of assessment. No drainage noted at time of assessment. Wound Number: 8 Distal penis area in pink in color. No open areas noted at time of assessment. No drainage noted at time of assessment. Patient has intact scabbed areas noted to left ring finger as well and top of head. Patient states he picks at himself. Surface the patient is resting on: Proform SKIN PREVENTION RECOMMENDATION: 1. Pressure redistribution support surface as appropriate 2. Elevate heels 3. Remove boots/TEDS every shift and reapply 4. Head of bed 30 degrees as tolerated 5. Assess nutrition and hydration 6. Manage moisture 7. Avoid the use of containment devices while in bed 8. Use absorptive products on surfaces limit layers of linens on bed 9. Turn and reposition every 1-2 hours in bed and every 1 hour in chair as tolerated 10. Weight shifts every 15 minutes while up in chair 11. Offloading with pillows or device to keep heels elevated off bed 12. Monitor skin at least every shift 13. Inspect under medical devices twice a day WOUND TREATMENT RECOMMENDATIONS: Cleanse proximal penis and distal penis with soap and water and apply hyrdaguard every shift and prn for soiling. Continue Cleanse right top of foot, right forearm distal, right forearm proximal, right forearm lateral, right forearm medial,left upper arm, top of head, left ring finger with soap and water and apply aquaphor ointment BID. Continue Heel raiser pro boot to right foot while in bed.
--- NOTE | 2019-08-20 06:11 | NUR ---
PATIENT OBSERVED ON Q 15 MIN CHECKS TO HAVE SLEPT APPROX 3 HOURS INTERRUPTED. NO SIGNS OR SYMPTOMS OF DISTRESS NOTED.
[2019-08-20 07:32] VITALS: BP 101/64
--- NOTE | 2019-08-20 08:41 | NUR ---
Left message on resident phone regarding wound care recommendations.
--- NOTE | 2019-08-20 08:45 | NUR ---
DR FOFANA ON UNIT TO ASSESS PT, UPDATE PROVIDED.
--- NOTE | 2019-08-20 09:18 | NUR ---
Spoke with Michaelle ALFREDO caring for patient regarding wound care recommendations.
--- NOTE | 2019-08-20 09:52 | NUR ---
ATTEMPTED TO CALL RESIDENT FOR DR WHITMORE RE: WOUND CARE RECOMMENDATIONS, NO ANSWER AT THIS TIME.
--- NOTE | 2019-08-20 10:47 | NUR ---
Spoke with Jolanta at [facility]. Advised of Plans to discharge Pt. Tuesday. Clinical Updates faxed to Facility.
--- NOTE | 2019-08-20 11:32 | NUR ---
AM GROUP PT CHOOSES NOT TO ATTEND GROUP THERAPY. PT ISOLATES TO A QUIET ROOM.
--- NOTE | 2019-08-20 12:04 | NUR ---
NO ADVERSE MOODS OR BEHAVIORS NOTED AT THIS TIME. PT ALERT TO PERSON, PLACE, TIME AND SITUATION. PT MED COMPLIANT WITHOUT DIFFICULTY, MED EDUCATION PROVIDED. PT CALM, MOOD IS STABLE. PT REMAINS ISOLATIVE TO SELF PER BASELINE. PT WILL INTERACT WITH STAFF, NO INTERACTION NOTED WITH PEERS. NO HALLUCINATIONS OR DELUSIONS NOTED. PT DENIES ANY SUICIDAL THOUGHTS. 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 PT CONTINENT OF BOWEL AND BLADDER, EPISODES OF INCONTINENCE NOTED, CARE PROVIDED NEEDED. PLAN IS TO MONITOR PT BEHAVIORS ON Q15 MIN SAFETY CHECKS, PROVIDE EMOTIONAL SUPPORT AND 1:1 FOR PT TO VOICE FEELINGS, ENCOURAGE MED COMPLIANCE AND PROVIDE MED EDUCATION.
--- NOTE | 2019-08-20 15:39 | NUR ---
PM GROUP PT CHOOSES NOT TO ATTEND GROUP THERAPY.
--- NOTE | 2019-08-20 18:39 | NUR ---
SPOKE WITH RESPIRATORY RE: PT REQUEST FOR A BREATHING TX PER AMY THEY WILL BE UP.
[2019-08-20 20:00] VITALS: BP 130/83
--- NOTE | 2019-08-21 04:03 | NUR ---
P-ATTEMPTING TO STAFF SPLIT, ANGRY/IRRITABLE, DEMANDING. I-ASSESS ORIENTATION, MOOD, AND BEHAVIOR. PROVIDE 1:1 WITH THERAPEUTIC INTERVENTIONS. PROVIDE REALITY PRESENTATION AND REDIRECTION NEEDED. MAINTAIN X2 STAFF WITH INTERACTIONS DUE TO ACCUSATORY BEHAVIOR. ENCOURAGE MEDICATION COMPLIANCE AND EDUCATE. MONITOR SLEEP. R-PT CONTINUES TO STAFF SPLIT, STATING NO ONE TAKES CARE OF HIM AND IGNORES HIM. PT ALSO REFUSING MEDICATIONS, BSG CHECK, SNACK, AND THEN STATING TO 2ND RN THAT IT WAS NEVER OFFERED TO HIM DESPITE BOTH STAFF MEMBERS BEING PRESENT DURING ALL INTERACTIONS. PT CURSING AND CALLING STAFF NAMES, YELLING OUT, SLAMMING NEARBY OBJECTS, AND ATTEMPTING TO THROW HIMSELF OUT OF CHAIR. PT UNRECEPTIVE TO REDIRECTION AND REMOVED FROM QUIET ROOM AND PLACED IN BED DUE TO DISRUPTIVE BEHAVIORS. PT REFUSING HOC STATING "I DONT CARE IF I SIT IN PEE". PT THEN HIT CALL LIGHT AT [facility] AND REQUESTED MEDICATIONS AND BSG CHECK AND THAT HE WAS SORRY BUT "HOW WOULD YOU LIKE IT IF YOU WAS ME" AND "WHAT ARE YOU GOING TO DO KICK ME OUT NOW". PT ALERT AND ORIENTED X4, DENIES SI/HI AND HALLUCINATIONS. NO PHYSICAL COMPLAINTS VOICED. X2 ASSIST, RAYMON, INCONTINENT/CONTINENT OF BOWEL AND BLADDER. PT CURRENTLY LAYING DOWN WITH EYES CLOSED, RESPIRATIONS EASY AND REGULAR, NO SIGNS OR SYMPTOMS OF DISTRESS NOTED. P-CONTINUE TO MONITOR MOOD AND BEHAVIORS. MAINTAIN Q 15 MIN CHECKS AND PRN FOR SAFETY.
--- NOTE | 2019-08-21 04:06 | NUR ---
Upon discharge recommend patient to follow up for wound care in outpatient setting continue current wound care orders at discharging facility.
--- NOTE | 2019-08-21 05:54 | NUR ---
PATIENT SLEPT APPROX 5 HOURS UNINTERRUPTED. NO SIGNS OR SYMPTOMS OF DISTRESS NOTED.
[2019-08-21 07:47] VITALS: BP 112/70
--- NOTE | 2019-08-21 08:00 | NUR ---
Patient sitting quietly. Respirations easy and regular. Vital signs stable. No overt distress. DEJUAN KELLER
--- NOTE | 2019-08-21 08:05 | NUR ---
dr. bello made aware of plans to discharge pt.
[2019-08-21] MEDS ORDERED: VITAMIN D3125 MC1 PO (08:16)
[2019-08-21] MEDS ORDERED: ROZEREM8 MG PO (08:16)
[2019-08-21] MEDS ORDERED: DULOXETINE HCL60 MG PO (08:16)
[2019-08-21] MEDS ORDERED: HYDROXYZINE HCL25 MG PO (08:16)
[2019-08-21] MEDS ORDERED: RISPERIDONE1 MG PO (08:16)
[2019-08-21] MEDS ORDERED: RISPERIDONE0.5 MG PO (08:16)
--- NOTE | 2019-08-21 11:33 | NUR ---
AM GROUP PT CHOOSES NOT TO ATTEND GROUP THERAPY. PT ISOLATES TO A QUIET ROOM.
--- NOTE | 2019-08-21 11:54 | NUR ---
NURSE TO NURSE REPORT GIVEN TO ELVIE AT [facility]. PEST CONTROLLER TIME IS 3PM.
--- NOTE | 2019-08-21 14:26 | NUR ---
Received a call from Fercho, the DARRION at [facility]. Fercho stated that updated progress notes are stating that pt does not want to return there. Fercho further stated that if pt doesn't want to return, then Fercho would not want pt returning. Informed Fercho that this keno writer was not aware of pt stating this recently. Did inform Fercho that pt did mention this when he first arrived at [facility]. This keno writer will meet with pt and notify Fercho of the conversation.
--- NOTE | 2019-08-21 14:29 | NUR ---
Met with pt in his room. Informed pt that he was discharging today and returning to [facility]. Asked pt his thoughts about this. Pt stated, "I'm ok with it." Spoke further with pt about his behaviors when he returns. Explained the advantages of good behaviors for pt vs continuing with difficult behaviors. Pt voiced understanding. Discussed why pt has outbursts. Pt spoke of losing the freedoms that he had when he lived at [facility]. Pt stated that he was used to going outside and being in [place]. Discussed this further and discussed pt's goal. Pt was tearful as he spoke of what he wanted. Continued to encourage pt to find positives and to focus on his goal.
--- NOTE | 2019-08-21 15:23 | NUR ---
Patient discharging today returning to [facility]. Follow-up will be with Dr Boss, visiting psychiatrist. While at [facility], pt's behaviors improved. His behaviors did escalate when discharge was discussed, as pt voiced that he would rather stay in [facility]. Pt did not participate in group activities. Previous to pt's discharge, this comic writer spoke with DARRION Brantley at [facility], and confirmed that pt is agreeable to returning there.
--- NOTE | 2019-08-21 15:29 | NUR ---
Treatment Plan meeting was held with Dr. Boss, SANTY Murphy, RN, AT, [employer] and [employer]. Plan for discharge today with return to [facility].
--- NOTE | 2019-08-21 15:39 | NUR ---
PM GROUP PT DID NOT ATTEND AFTERNOON GROUP THERAPY. PT WAS READYING TO BE DISCHARGED FROM THE UNIT THIS AFTERNOON.
--- NOTE | 2019-08-21 15:53 | NUR ---
LIFE TEAM PRESENT, ALL BELONGINGS GATHERED. PATIENT ASSISTED TO [facility] X 5 ASSIST. ALL BELONGING AND DISCHARGE INSTRUCTIONS SENT WITH PATIENT OFF UNIT.
--- NOTE | 2019-08-22 07:34 | NUR ---
Faxed discharge to [facility]. IP matilda through 08/22. Ref # [id number]
== END 2019-08-21 15:56 | DRG 883 ==
LOC: 3N 17:22
PROVIDERS: Student in an Organized Health Care Education/Training Program; ADMIT Psychiatry & Neurology Psychiatry
DX: F63.81 Intermittent explosive disorder (principal); E87.1 Hypo-osmolality and hyponatremia; F31.60 Bipolar disorder, current episode mixed, unspecified; I50.9 Heart failure, unspecified; J44.9 Chronic obstructive pulmonary disease, unspecified; F41.9 Anxiety disorder, unspecified; R00.0 Tachycardia, unspecified; K21.9 Gastro-esophageal reflux disease without esophagitis; I11.0 Hypertensive heart disease with heart failure; G47.00 Insomnia, unspecified; I25.10 Atherosclerotic heart disease of native coronary artery without angina pectoris; E78.00 Pure hypercholesterolemia, unspecified; M19.90 Unspecified osteoarthritis, unspecified site; E78.5 Hyperlipidemia, unspecified; K59.00 Constipation, unspecified; B96.89 Other specified bacterial agents as the cause of diseases classified elsewhere; R25.2 Cramp and spasm; E11.65 Type 2 diabetes mellitus with hyperglycemia; E55.9 Vitamin D deficiency, unspecified; R82.79 Other abnormal findings on microbiological examination of urine; E11.42 Type 2 diabetes mellitus with diabetic polyneuropathy; E66.9 Obesity, unspecified; I37.9 Nonrheumatic pulmonary valve disorder, unspecified; G43.909 Migraine, unspecified, not intractable, without status migrainosus; G89.29 Other chronic pain; Z89.512 Acquired absence of left leg below knee; Z79.4 Long term (current) use of insulin; Z95.0 Presence of cardiac pacemaker; Z89.411 Acquired absence of right great toe

== ENCOUNTER 2019-09-18 15:00 | Inpatient (IN) | payer MEDICARE, OTHER ==
[~2019-09-18] VITALS: Ht 182.8 cm; Wt 133.0 kg
[~2019-09-18 15:00] MED LIST: ARNUITY ELLIPT50 MCG INH; COLACE100 MG PO; CYMBALTA30 MG PO; CYMBALTA60 MG PO; DEPAKOTE250 MG PO; DEPAKOTE500 MG PO; DULOXETINE HCL60 MG PO; ELIQUIS5 M1 PO; FLOMAX0.4 MG PO; HUMALOG100 UNIT/1 SQ; HUMALOG100 UNIT/2 SC; HYDROXYZINE HCL25 MG PO; Ipratropium Brom3 ML INH; LASIX20 MG PO; LEVEMIR FL100 UNIT/1 SQ; LISINOPRIL5 MG PO; MAPAP325 MG PO; MELATONIN5 M1 PO; METOPROLOL SUCC50 M2 PO; MIRALAX17 GM PO; RISPERIDONE0.5 MG PO; RISPERIDONE1 MG PO; ROZEREM8 MG PO; SENNA8.6 MG PO; VITAMIN D3125 MC1 PO
[2019-09-18] MEDS ORDERED: METAMUCIL660 GM PO (16:44)
[2019-09-18 19:06] VITALS: BP 115/76
[2019-09-18 20:00] VITALS: BP 122/80
[2019-09-18 20:53] LABS: CLARITY SL CLOUDY (CLEAR); COLOR YELLOW (YELLOW)
[2019-09-18 20:54] LABS: BILIRUBIN NEGATIVE (NEGATIVE); BLOOD 3+ (NEGATIVE); GLUCOSE 3+ (NEGATIVE); KETONE TRACE (NEGATIVE); LEUKO ESTERASE NEGATIVE (NEGATIVE); NITRITE NEGATIVE (NEGATIVE); UROBILINOGEN 0.2 E.U./dl (0.2-1.0)
[2019-09-18 20:59] LABS: BACTERIA TRACE; RBC TNTC rbc/hpf (0-2)
[2019-09-18 22:00] VITALS: BP 122/80
[2019-09-19 07:47] LABS: BASO # 0.1 10*3/uL (0.0-0.1); BASO % 0.7 % (0.0-1.0); EOS # 0.1 10*3/uL (0.0-0.4); EOS % 1.9 % (1.0-4.0); HEMATOCRIT 41.7 % (42.0-52.0); LYMPH # 2.2 10*3/uL (1.3-4.4); LYMPH % 28.8 % (27.0-41.0); MEAN CELL VOLUME 89.5 fl (80.0-94.0); MEAN CORPUSCULAR HGB 29.4 pg (27.0-31.0); MEAN CORPUSCULAR HGB CONC 32.9 g/dl (33.0-37.0); MEAN PLATELET VOLUME 9.7 fl (9.6-12.3); MONO # 0.9 10*3/uL (0.1-1.0); MONO % 12.4 % (3.0-9.0); NEUT # 4.2 10*3/uL (2.3-7.9); NEUT % 55.4 % (47.0-73.0); PLATELET COUNT AUTOMATED 158 10*3/uL (130-400); RED BLOOD COUNT 4.66 10*6/uL (4.50-5.90); RED CELL DISTRI WIDTH 13.7 % (0-14.5); WHITE BLOOD COUNT 7.5 10*3/uL (4.8-10.8)
[2019-09-19 08:00] VITALS: BP 114/69; BP 125/70
[2019-09-19 08:10] LABS: ALKALINE PHOSPHATASE 76 U/L (45-117); BUN 20 mg/dl (7-24); CHLORIDE 102 mmol/L (98-107); CHOLESTEROL 219 mg/dL (<200); CREATININE 0.77 mg/dL (0.70-1.30); POTASSIUM 4.3 mmol/L (3.5-5.1); SGOT/AST 6 IU/L (3-35); SGPT/ALT 24 U/L (12-78); SODIUM 137 mmol/L (136-145); TOTAL PROTEIN 7.5 gm/dL (6.4-8.2); TRIGLYCERIDES 220 mg/dl (<150); VLDL CHOLESTEROL 44 mg/dL (6-40)
[2019-09-19 08:17] LABS: HDL CHOLESTEROL 39 mg/dl (40-60)
[2019-09-19 08:39] LABS: VITAMIN D, 25-HYDROXY 42.1 ng/mL (30-100)
[2019-09-19 11:15] LABS: LDL CHOLESTEROL 136 mg/dL (9-159)
[2019-09-19 20:00] VITALS: BP 118/83
[2019-09-20 07:55] VITALS: BP 121/89
[2019-09-20 20:00] VITALS: BP 123/65
[2019-09-21 07:45] VITALS: BP 118/63
[2019-09-21 20:00] VITALS: BP 116/65
[2019-09-22 07:51] VITALS: BP 131/77; BP 132/73
[2019-09-22 19:52] VITALS: BP 118/58
[2019-09-23 07:57] VITALS: BP 116/89
[2019-09-23 20:00] VITALS: BP 106/70
[2019-09-23 21:00] VITALS: BP 118/64
[2019-09-24 07:45] VITALS: BP 111/67
[2019-09-24 08:41] VITALS: BP 120/70
[2019-09-24 20:00] VITALS: BP 110/62
[2019-09-25 10:18] LABS: BASO % 0.4 % (0.0-1.0); EOS # 0.1 10*3/uL (0.0-0.4); EOS % 0.9 % (1.0-4.0); HEMATOCRIT 42.1 % (42.0-52.0); LYMPH # 1.8 10*3/uL (1.3-4.4); LYMPH % 27.1 % (27.0-41.0); MEAN CELL VOLUME 87.2 fl (80.0-94.0); MEAN CORPUSCULAR HGB 28.8 pg (27.0-31.0); MEAN PLATELET VOLUME 9.5 fl (9.6-12.3); MONO # 0.8 10*3/uL (0.1-1.0); MONO % 12.6 % (3.0-9.0); NEUT # 3.9 10*3/uL (2.3-7.9); PLATELET COUNT AUTOMATED 181 10*3/uL (130-400); RED BLOOD COUNT 4.83 10*6/uL (4.50-5.90); RED CELL DISTRI WIDTH 13.2 % (0-14.5); WHITE BLOOD COUNT 6.7 10*3/uL (4.8-10.8)
[2019-09-25 10:31] LABS: ALBUMIN 3.1 gm/dl (3.1-4.5); ALKALINE PHOSPHATASE 74 U/L (45-117); BUN 18 mg/dl (7-24); CHLORIDE 95 mmol/L (98-107); CREATININE 0.89 mg/dL (0.70-1.30); POTASSIUM 4.6 mmol/L (3.5-5.1); SGOT/AST 5 IU/L (3-35); SGPT/ALT 21 U/L (12-78); SODIUM 131 mmol/L (136-145); TOTAL PROTEIN 7.4 gm/dL (6.4-8.2)
[2019-09-25 19:58] VITALS: BP 119/76
[2019-09-26 07:46] VITALS: BP 120/79
[2019-09-26 20:00] VITALS: BP 105/70
[2019-09-27 07:29] LABS: ALBUMIN 2.8 gm/dl (3.1-4.5); BUN 17 mg/dl (7-24); CHLORIDE 95 mmol/L (98-107); CREATININE 0.83 mg/dL (0.70-1.30); POTASSIUM 4.4 mmol/L (3.5-5.1); SGOT/AST 5 IU/L (3-35); SGPT/ALT 18 U/L (12-78); SODIUM 129 mmol/L (136-145)
[2019-09-27 07:30] LABS: BASO % 0.5 % (0.0-1.0); EOS # 0.1 10*3/uL (0.0-0.4); EOS % 1.6 % (1.0-4.0); HEMATOCRIT 39.7 % (42.0-52.0); LYMPH % 32.3 % (27.0-41.0); MEAN CELL VOLUME 87.1 fl (80.0-94.0); MEAN CORPUSCULAR HGB 28.7 pg (27.0-31.0); MEAN PLATELET VOLUME 9.8 fl (9.6-12.3); MONO # 0.8 10*3/uL (0.1-1.0); MONO % 12.5 % (3.0-9.0); NEUT # 3.3 10*3/uL (2.3-7.9); NEUT % 51.5 % (47.0-73.0); PLATELET COUNT AUTOMATED 180 10*3/uL (130-400); RED BLOOD COUNT 4.56 10*6/uL (4.50-5.90); RED CELL DISTRI WIDTH 13.2 % (0-14.5); WHITE BLOOD COUNT 6.3 10*3/uL (4.8-10.8)
[2019-09-27 07:31] LABS: ALKALINE PHOSPHATASE 68 U/L (45-117); TOTAL PROTEIN 6.7 gm/dL (6.4-8.2)
[2019-09-27 08:00] VITALS: BP 111/70
[2019-09-27 20:00] VITALS: BP 129/82
[2019-09-28 07:57] VITALS: BP 113/71
[2019-09-28 20:00] VITALS: BP 122/86
[2019-09-29 06:41] LABS: BUN 17 mg/dl (7-24); CHLORIDE 95 mmol/L (98-107); CREATININE 0.86 mg/dL (0.70-1.30); POTASSIUM 4.3 mmol/L (3.5-5.1); SODIUM 131 mmol/L (136-145)
[2019-09-29 07:32] VITALS: BP 112/65
[2019-09-29 20:00] VITALS: BP 118/70
[2019-09-30 07:39] VITALS: BP 118/57
[2019-09-30 20:02] VITALS: BP 113/74
[2019-10-01 07:59] VITALS: BP 129/66
[2019-10-01 20:14] VITALS: BP 134/68
[2019-10-02 06:25] LABS: BUN 19 mg/dl (7-24); CHLORIDE 95 mmol/L (98-107); POTASSIUM 4.9 mmol/L (3.5-5.1); SODIUM 131 mmol/L (136-145)
[2019-10-02 06:34] LABS: ALBUMIN 2.9 gm/dl (3.1-4.5); CREATININE 0.96 mg/dL (0.70-1.30)
[2019-10-02 08:00] VITALS: BP 102/82; BP 122/86
[2019-10-02 19:59] VITALS: BP 123/64
[2019-10-03 07:36] VITALS: BP 113/68
[2019-10-03 20:00] VITALS: BP 134/71
[2019-10-04 07:47] VITALS: BP 142/75
[2019-10-04] MEDS ORDERED: DIVALPROEX SOD500 MG PO ×2 (09:27)
[2019-10-04] MEDS ORDERED: ARIPIPRAZOLE15 MG PO (09:27)
[2019-10-04] MEDS ORDERED: FLOMAX0.4 MG PO (10:44)
[2019-10-04] MEDS ORDERED: LASIX20 MG PO (10:44)
[2019-10-04] MEDS ORDERED: COLACE100 MG PO (10:44)
[2019-10-04] MEDS ORDERED: ELIQUIS5 M1 PO (10:44)
[2019-10-04] MEDS ORDERED: Ipratropium Brom3 ML INH (10:44)
[2019-10-04] MEDS ORDERED: LISINOPRIL5 MG PO (10:44)
[2019-10-04] MEDS ORDERED: SENNA8.6 MG PO (10:44)
[2019-10-04] MEDS ORDERED: METOPROLOL SUCC50 M2 PO (10:44)
[2019-10-04] MEDS ORDERED: ARNUITY ELLIPT50 MCG INH (10:44)
[2019-10-04] MEDS ORDERED: MIRALAX17 GM PO (10:44)
[2019-10-04] MEDS ORDERED: METAMUCIL660 GM PO (10:44)
[2019-10-04] MEDS ORDERED: LEVEMIR FL100 UNIT/1 SQ (10:44)
[2019-10-04] MEDS ORDERED: HUMALOG100 UNIT/2 SC (10:45)
== END 2019-10-04 14:12 | disposition other institution (70) | DRG 885 ==
LOC: 3N 15:00
PROVIDERS: Family Medicine; Registered Nurse; ADMIT Psychiatry & Neurology Psychiatry
DX: F33.2 Major depressive disorder, recurrent severe without psychotic features (principal); L02.412 Cutaneous abscess of left axilla; R45.851 Suicidal ideations; E87.1 Hypo-osmolality and hyponatremia; R31.9 Hematuria, unspecified; K21.9 Gastro-esophageal reflux disease without esophagitis; I50.9 Heart failure, unspecified; F41.9 Anxiety disorder, unspecified; G47.00 Insomnia, unspecified; J44.9 Chronic obstructive pulmonary disease, unspecified; E11.69 Type 2 diabetes mellitus with other specified complication; I25.10 Atherosclerotic heart disease of native coronary artery without angina pectoris; E78.00 Pure hypercholesterolemia, unspecified; E66.01 Morbid (severe) obesity due to excess calories; G89.29 Other chronic pain; E78.5 Hyperlipidemia, unspecified; I11.0 Hypertensive heart disease with heart failure; I73.9 Peripheral vascular disease, unspecified; Z96.652 Presence of left artificial knee joint; Z79.4 Long term (current) use of insulin; Z68.39 Body mass index [BMI] 39.0-39.9, adult; Z89.412 Acquired absence of left great toe; Z89.411 Acquired absence of right great toe; Z95.0 Presence of cardiac pacemaker; Z88.8 Allergy status to other drugs, medicaments and biological substances